=== PATIENT | male | born 1980 | race Caucasian/White ===

== ENCOUNTER 2018-01-31 12:21 | Emergency (ER) | payer MEDICAID ==
[2018-01-31 12:30] VITALS: BP 124/72
--- NOTE | 2018-01-31 12:56 | EDPHY ---
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 He has been wearing a splint that he bought [id number] but continues to be painful swollen and he is unable to extend. He denies any numbness. He denies any other injury. REVIEW OF SYSTEMS: As in HPI, and all other systems reviewed and are negative Smoking Status: Never smoked Physical Exam: General Appearance: Alert and no distress. Head: Normocephalic, atraumatic Eyes: Pupils equal and round no injection. Extraocular movements are intact. Musculoskeletal: Neck is supple and nontender. Extremities: Left ring finger with mallet finger deformity, unable to extend at the IP joint, PIP joint intact, positive minimal erythema and minimal tenderness, distal sensation intact, distal cap refill less than 2 sec. Skin: No rashes or lesions except as described above. Constitutional: Initial Vital Signs Temperature (C) 36.8 C 01/31/18 12:26 Heart Rate 82 01/31/18 12:26 Respiratory Rate 16 01/31/18 12:26 Blood Pressure 124/72 H 01/31/18 12:26 O2 Sat (%) 94 01/31/18 12:26 O2 Delivery Mode Room Air Allergies/Adverse Reactions: Penicillins Allergy (Unknown, Verified 01/31/18 12:30) Home Medications: Medication Instructions Recorded ALBUTEROL SULFATE 01/31/18 Cyclobenzaprine 01/31/18 Dulera 100 Mcg/5 Mcg Inhaler 01/31/18 LYRICA 01/31/18 Oral Asthma Med 01/31/18 MDM/Departure - [facility] ED Course/Re-evaluation: 37-year-old man presents with mallet finger. X-ray was done which showed no evidence of fracture. Patient was placed in a splint and extension and referred to Ortho for follow-up. I instructed him in wearing a splint for the next 6 weeks, he may continue ibuprofen and ice as for pain and swelling. - Depart Disposition: Home, Routine, Self-Care Clinical Impression: Mallet finger of left finger(s) Condition: Good Instructions: Jammed Finger (ED) Additional Instructions: You were seen by Dr. Marely Hudson today. Wear the splint and keep the finger in extension for the next 5 weeks to prevent permanent flexion deformity of the finger. Please follow up with Dr. Tadeo, hand surgeon for further evaluation and treatment. Return for any worsening or new concerns. Referrals: [facility] [Other] - As per Instructions Stef Tadeo MD [Medical Doctor] - As per Instructions
== END 2018-01-31 13:02 | disposition home or self-care (01) ==
LOC: CED 12:21
DX: M20.012 Mallet finger of left finger(s) (principal); W23.0XXA Caught, crushed, jammed, or pinched between moving objects, initial encounter; Y93.61 Activity, american tackle football
CPT/HCPCS: 73140-PO; L3925

== ENCOUNTER 2018-08-09 19:09 | Emergency (ER) | payer MEDICAID ==
--- NOTE | 2018-08-09 19:42 | EDPHY ---
H & P Smoking Status: Current every day smoker Time Seen by Provider: 08/09/18 19:09 HPI/ROS: CHIEF COMPLAINT: "I fell" HISTORY OF PRESENT ILLNESS: 38-year-old male arrives via ambulance. States that he was visiting his grandmother, stepped out side to have super drinks of alcohol on a cigarette, fell. Not a syncopal episode. Mechanical incident. Grandmother was unable to stand him up, subsequently 911 was called. He has no complaints of pain or discomfort. He denies head injury. Denies syncope. Denies chest pain or prodrome. Denies C-spine pain. Denies peripheral paresthesia, weakness, numbness. Denies back pain. Denies peripheral musculoskeletal pain. Denies abdominal pain. Denies genital pain or injury. PRIMARY CARE PROVIDER: REVIEW OF SYSTEMS: 10 systems reviewed and negative with the exception of the elements mentioned in the history of present illness PAST MEDICAL & SURGICAL HISTORY: No pertinent medical or surgical history SOCIAL HISTORY: Admits to alcohol use PHYSICAL EXAM (Prior to examination, patient consented to physical exam, hands were washed and my usual and customary physical exam procedures followed) 1) GENERAL: Well-developed, well-nourished, alert and oriented. Appears to be in no acute distress. Smiling. Occurred ES. Answering questions appropriately. 2) HEAD: Normocephalic, atraumatic, no abrasion no hematoma or laceration. 3) HEENT: Pupils equal, round, reactive to light bilaterally. Sclera anicteric. No raccoon eyes. No Robertson sign. Nasopharynx, oropharynx, clear, no lesions. Moist Mucous membranes. No oral pharyngeal trauma. No tongue laceration. Ears bilaterally with normal tympanic membranes. No hemotympanum. No fluid blood in external auditory canal. 4) NECK: Full range of motion, no meningeal signs. No midline C-spine pain. Full pain-free range of motion. 5) LUNGS: Clear auscultation bilaterally, no wheezes, no rhonchi, no retractions. 6) HEART: Regular rate and rhythm, no murmur, no heave, no gallop. 7) ABDOMEN: No guarding, no rebound, no focal tenderness, negative McBurney's, negative Le's, negative Rovsing's, negative peritoneal sign, 8) MUSCULOSKELETAL: Moving all extremities, no focal areas of tenderness, no obvious trauma. No peripheral edema or discoloration. 9) BACK: No CVA tenderness, no midline vertebral tenderness, no fluctuance, no step-off, no obvious trauma, no visual or palpable abnormality. 10) SKIN: No rash, no petechiae. 11) Psychiatric: Patient is oriented X 3, there is no agitation. 12) NEURO: Awake, alert, and oriented to person, place and time. Answers questions appropriately. There were no obvious focal neurologic abnormalities. No cerebellar dysfunction. Cranial nerves 2 through to 12 intact. Normal steady gait. Upper and lower extremities bilaterally with strength 5 / 5, reflexes 2+. DIFFERENTIAL DIAGNOSIS: In no particular order including but not limited to alcohol abuse, syncope, mechanical fall on snow (Aron,Odell Mercedes) Constitutional: Initial Vital Signs Temperature (C) 36.5 C 08/09/18 19:17 Heart Rate 91 08/09/18 19:17 Respiratory Rate 14 08/09/18 19:17 Blood Pressure 118/79 08/09/18 19:17 O2 Sat (%) 87 L 08/09/18 19:17 O2 Delivery Mode Room Air Allergies/Adverse Reactions: Penicillins Allergy (Unknown, Verified 01/31/18 12:30) Home Medications: Medication Instructions Recorded ALBUTEROL SULFATE 01/31/18 Cyclobenzaprine 01/31/18 Dulera 100 Mcg/5 Mcg Inhaler 01/31/18 LYRICA 01/31/18 Oral Asthma Med 01/31/18 MDM/Departure - [facility] ED Course/Re-evaluation: PHYSICIAN DOCUMENTATION: The patient was evaluated and managed by the Physician Manager [employer]. My co- signature indicates that I have reviewed this chart and I agree with the findings and plan of care as documented. I am the secondary supervising physician. (Juwan Parker) 7:30 p.m.: I have evaluated the patient, this time he is ambulating without assistance with stable steady gait, clear speech pattern, awake alert oriented person place time events. I have observed him ambulating to the bathroom and back. He has NIH score of 0. No focal neurologic deficits. He would like to be discharged back to his grandmothers apartment. He has no evidence of trauma. I do not identify emergent medical or surgical condition. Patient feels comfortable being discharged. (Odell Sharp) - Depart Disposition: Home, Routine, Self-Care Clinical Impression: Alcohol use Condition: Good Instructions: Abuse of Alcohol (ED) Additional Instructions: Please exercise moderation with alcohol use Referrals: [facility],. [Clinic] - 1-2 days without fail NIH Stroke Scale Date of Exam: 08/09/18 Time of Exam: 19:15 Level of Consciousness: Alert LOC Questions: Answers Both LOC Commands: Performs Both Correctly Best Gaze: Normal Visual: No Visual Loss Facial Palsy: Normal Motor Arm-Left: No Drift Motor Arm-Right: No Drift Motor Leg-Left: No Drift Motor Leg-Right: No Drift Limb Ataxis: Absent Sensory: Normal Best Language: No Aphasia Dysarthria: Normal Extinction and Inattention (Neglect): No Abnormality NIH Scale Score: 0
[2018-08-09 21:05] VITALS: BP 119/96
== END 2018-08-09 21:06 | disposition home or self-care (01) ==
LOC: EDUNIT#
DX: F10.920 Alcohol use, unspecified with intoxication, uncomplicated (principal)

== ENCOUNTER 2018-08-11 01:31 | Inpatient (IN) | payer MEDICAID ==
[2018-08-11] MEDS ORDERED: NS 1,000 ML IV ONE ×2 (01:35→03:20)
[2018-08-11] MEDS ORDERED: LORazepam 1 MG TAB PO PRN (01:35)
--- NOTE | 2018-08-11 01:38 | EDPHY ---
H & P Stated Complaint: Seizure Time Seen by Provider: 08/11/18 01:34 HPI/ROS: HPI The patient presents brought in by ambulance for possible seizure while at his grandmother's house. He was seated on the couch when his grandmother witnessed tonic clonic activity in his arms and legs lasting for about 3 min. He fell off the couch and landed on the floor, hitting his head. He afterwards was somewhat sleepy. Blood glucose was 163. Patient has become more awake and alert during his transport here. He reports that he does not have a history of seizures. He is a heavy alcohol drinker. He was seen 2 days ago in the ER for alcohol intoxication and a fall associated with this. REVIEW OF SYSTEMS 10 systems were reviewed and negative with the exception of the elements mentioned in the history of present illness. PMHx: History of asthma, alopecia areata, eczema Soc Hx: Alcohol abuse, living with his grandmother currently PHYSICAL General Appearance: Alert, no distress Eyes: Pupils equal and round no pallor or injection ENT, Mouth: Mucous membranes moist Respiratory: There are no retractions, lungs are clear to auscultation Cardiovascular: Regular rate and rhythm Gastrointestinal: Abdomen is soft and non-tender, no masses, bowel sounds normal Neurological: A&O, moves all extremities, tremulous with hand tremor Skin: Warm and dry, no rashes Musculoskeletal: Neck is supple non tender Extremities: symmetrical, full range of motion Psychiatric: Patient is oriented X 3, there is no agitation Source: Patient, EMS, Old records - Personal History Tetanus Vaccine Date: 2008 - Medical/Surgical History Hx Asthma: Yes Hx Chronic Respiratory Disease: No Hx Diabetes: No Hx Cardiac Disease: No Hx Renal Disease: No Hx Cirrhosis: No Hx Alcoholism: No Hx HIV/AIDS: No Hx Splenectomy or Spleen Trauma: No Other PMH: ASTHMA. DEVIATED SEPTUM REPAIR. Alopecia,. Fibromyalgia, - Social History Smoking Status: Current every day smoker Constitutional: Initial Vital Signs Temperature (C) 37.3 C 08/11/18 01:20 Heart Rate 87 08/11/18 01:20 Respiratory Rate 18 08/11/18 01:20 Blood Pressure 148/82 H 08/11/18 01:20 O2 Sat (%) 93 08/11/18 01:20 O2 Delivery Mode Nasal Cannula O2 (L/minute) 2 Allergies/Adverse Reactions: Penicillins Allergy (Unknown, Verified 01/31/18 12:30) Home Medications: Medication Instructions Recorded Albuterol [Proventil Inhaler HFA 1 - 2 puffs IH Q4H PRN 01/31/18 (*)] Mometasone/Formoterol [Dulera 200 2 puffs IH BID 01/31/18 Mcg/5 Mcg Inhaler] Medical Decision Making Differential Diagnosis: 38-year-old male, seen 2 days ago for alcohol intoxication presents with a witnessed tonic clonic event with postictal period. I met the paramedics at the bedside to obtain their report. Here, he appears to be in alcohol withdrawal. I have started him on the CIWA protocol. The patient had labs checked and they were unremarkable. Blood alcohol level was undetectable. The patient received several doses of Ativan though was still tremulous, uncomfortable appearing though sedate. He became tachycardic every time he set up. I discussed the case with the hospitalist Dr. Amezcua and we will admit the patient for further care for alcohol withdrawal. Differential diagnosis includes alcohol withdrawal seizure, electrolyte disturbance, polysubstance abuse. - Data Points Laboratory Results: Laboratory Results 08/11/18 01:35 08/11/18 01:33 Medications Given: Albuterol (Proventil Neb) 3 ml IH Q2HRS PRN PRN Reason: Short of Breath/Dyspnea Stop: 02/07/19 07:15 Last Admin: 08/11/18 22:06 Dose: 3 ml Chlordiazepoxide HCl (Librium) 25 mg PO TID MARGARITA Stop: 02/07/19 08:59 Last Admin: 08/11/18 20:45 Dose: 25 mg Sodium Chloride (Ns) 1,000 mls @ 100 mls/hr IV CONT MARGARITA Stop: 02/07/19 06:14 Last Admin: 08/11/18 14:05 Dose: 1,000 mls Famotidine/Sodium Chloride (Pepcid 20 Mg (Premix)) 50 mls @ 200 mls/hr IV Q12HRS MARGARITA Stop: 02/07/19 08:59 Last Admin: 08/11/18 20:45 Dose: 50 mls Lorazepam (Ativan Injection) 0 mg IVP Q1H PRN; Protocol PRN Reason: Alcohol Withdrawal w/IV access Stop: 02/07/19 06:11 Last Admin: 08/11/18 22:50 Dose: 2 mg Miscellaneous Medication (Mometasone/Formoterol [Dulera 200 Mcg/5 Mcg Inhaler]) 2 puffs IH BID MARGARITA Stop: 02/07/19 13:44 Last Admin: 08/11/18 21:02 Dose: Not Given Discontinued Medications Chlordiazepoxide HCl (Librium) 50 mg PO EDNOW ONE Stop: 08/11/18 04:44 Last Admin: 08/11/18 05:30 Dose: 50 mg Sodium Chloride (Ns) 1,000 mls @ 0 mls/hr IV EDNOW ONE; Wide Open PRN Reason: Protocol Stop: 08/11/18 01:36 Last Admin: 08/11/18 01:47 Dose: 1,000 mls Sodium Chloride (Ns) 1,000 mls @ 0 mls/hr IV EDNOW ONE; TKO PRN Reason: Protocol Stop: 08/11/18 03:21 Last Admin: 08/11/18 03:21 Dose: 1,000 mls Thiamine HCl 500 mg/ Sodium (Chloride) 105 mls @ 210 mls/hr IV EDNOW ONE Stop: 08/11/18 10:14 Last Admin: 08/11/18 10:04 Dose: 105 mls Lorazepam (Ativan Injection) 0 mg IVP Q1H PRN; Protocol PRN Reason: Alcohol Withdrawal w/IV access Stop: 08/11/18 13:35 Last Admin: 08/11/18 11:21 Dose: 2 mg Lorazepam (Ativan Injection) 1 mg IVP EDNOW ONE Stop: 08/11/18 03:11 Last Admin: 08/11/18 03:22 Dose: 1 mg Lorazepam (Ativan Injection) 2 mg IVP EDNOW ONE Stop: 08/11/18 06:34 Last Admin: 08/11/18 06:33 Dose: 2 mg Departure - Departure Disposition: [facility] Clinical Impression: Alcohol withdrawal seizure with delirium Condition: Fair
[2018-08-11] MEDS: LORazepam 2 MG/ML INJ IVP PRN ×10 (01:47→22:50)
[2018-08-11 02:01] LABS: PLATELET COUNT 75 10^3/uL (150-400)
[2018-08-11] MEDS ORDERED: LORazepam 2 MG/ML INJ IVP ONE ×2 (03:10→06:33)
[2018-08-11] MEDS ORDERED: chlordiazePOXIDE 25 MG CAP PO ONE (04:43)
[2018-08-11] MEDS ORDERED: ONDANSETRON 4 MG/2 ML VIAL IVP PRN (06:07)
[2018-08-11] MEDS ORDERED: ONDANSETRON DISINTEGRATING 4 MG TAB PO PRN (06:07)
--- NOTE | 2018-08-11 06:07 | CPEKG ---
Test Reason : OPEN Blood Pressure : / mmHG Vent. Rate : 092 BPM Atrial Rate : 088 BPM P-R Int : 132 ms QRS Dur : 102 ms QT Int : 468 ms P-R-T Axes : 166 -44 185 degrees QTc Int : 580 ms Sinus or ectopic atrial rhythm Left axis deviation Abnormal T Prolonged QT interval Confirmed by Floresita Soler ([id number]) on 08/11/2018 6:06:55 AM Referred By: Floresita Soler Confirmed By:Floresita Soler
[2018-08-11] MEDS ORDERED: FLUMAZENIL 0.5 MG/5 ML MDV IVP PRN (06:12)
--- NOTE | 2018-08-11 07:55 | GHP ---
[f rep st] HISTORY AND PHYSICAL DATE OF ADMISSION: 08/11/2018 Patient without a PCP. The patient unable to provide significant amount of history as he is a little confused due to alcohol withdrawal. EMR was reviewed and case discussed with ED provider. CHIEF COMPLAINT: Alcohol withdrawal seizure. HISTORY OF PRESENT ILLNESS: This is a 38-year-old gentleman with a past medical history significant for alcohol dependence, asthma, alopecia, fibromyalgia, who presents to the emergency department [place] early this morning via EMS after patient had a witnessed tonic-clonic seizure. The patient is cur rently, recently living with his grandmother, who observed the patient having a seizure at home. Heaven arently the patient had been to the emergency department 2 days ago, intoxicated, following a mechani sang fall. He was discharged home and apparently patient had decided to quit drinking "cold turkey." Witness seizure lasted approximately 3 minutes and patient did fall off the sofa. REVIEW OF SYSTEMS: Unable to obtain due to patient's confusion, sedation. ALLERGIES: Penicillin. HOME MEDICATIONS: Lyrica, Dulera inhaler, cyclobenzaprine, albuterol, another asthma medication not yet updated in [facility]. PAST MEDICAL HISTORY: Significant for alcohol dependence, asthma, alopecia areata, fibromyalgia. PAST SURGICAL HISTORY: Deviated septum repair. FAMILY HISTORY: Seasonal allergies. CODE STATUS: Full. SOCIAL HISTORY: Patient does not smoke. He does drink as noted above, and uses marijuana occasional ly. PHYSICAL EXAMINATION: VITAL SIGNS: Upon arrival to the ED, blood pressure 148/82, heart rate 87, re spiratory rate 18, O2 saturation 93 on room air with temperature 37.3. Current vitals available: Blo od pressure of 134/82, heart rate is 105, respiratory rate 18, O2 saturation 92% on 2 L by nasal yolanda emma, and temperature 36.6. GENERAL: No acute distress. Thin adult male, is lying on the gurney. Van morris does appear older than his stated age. He does not have any hair on his face or scalp. He will wa ke to name but then falls back asleep. HEAD: Normocephalic, atraumatic. EYES: Extraocular muscles are grossly intact. Pupils equal, round. Decreased reactivity to light bilaterally, but symmetric. No scleral icterus. Conjunctival injection. ENT: Mucous membranes appear slightly dry. No oroph aryngeal erythema or exudates. No nasal discharge. NECK: Supple, trachea midline. CV: Regular rat e and rhythm. Slightly tachycardic. No rubs or gallops appreciated. RESPIRATORY: Lungs clear to a uscultation bilaterally. No wheezes, rales, or rhonchi. Some diminished inspiratory effort. ABDOME N: Positive bowel sounds. Soft, nontender to palpation. No rebound, guarding, or masses appreciated . : No suprapubic tenderness to palpation. No Nelosn catheter in place. MUSCULOSKELETAL: Genera lized weakness. The patient is somnolent and sedated, but is able to move all extremities. NEURO: Grossly nonfocal. No facial drooping. Somnolence as noted above. LABORATORY STUDIES: WBC is 11.97, H and H are 14.9 and 44.5, MCV of 99.1, platelet count 25,000, dec reased platelets, oval macrocytes noted, no blast cells. Sodium is 134, potassium 4.3, chloride 93, CO2 21, anion gap of 20, BUN 9, creatinine 0.5. GFR greate r than 50, glucose 98, calcium is 9.7, total bilirubin is 3.7, conjugated 0.6, unconjugated 3.1, ALT is 138, AST is 194, Alkaline phosphatase 118. Total protein 7.6, albumin 4.7. Alcohol level negative. EKG: Reviewed by me showing left axis deviation, abnormal T-waves in multiple leads. Sinus versus e ctopic atrial rhythm in the 90s. QTc is 580. Some artifact is present. No acute ST elevations. T- wave inversions in multiple leads. ASSESSMENT AND PLAN: Osonqx[age]pymv-kzbh-old gentleman with history of alcohol dependence, asthma, who presents to the emergency department today with seizure. 1. Alcohol withdrawal with seizure activity. The patient has been started on CIWA protocol and has received Ativan. He has not had any additional seizure activity since arrival in the emergency depar tment. Hold off on antiepileptic medications. Patient with escalating needs of Ativan and likely wi ll necessitate ICU admission and use of sedation drip. He does have a previous history of alcohol wi thdrawal, but denies any history of seizures in the past. 2. Leukocytosis, likely reactive. 3. Thrombocytopenia with transaminitis and hyperbilirubinemia and coagulopathy likely related to seq uelae of chronic alcohol use, liver involvement. 4. Hyponatremia, likely some component of hypovolemia. The patient does not appear overloaded. 5. Hypochloridemia in setting of hyponatremia. Continue with IV fluids. 6. Anion gap likely secondary, related to withdrawal and seizure activity. We will continue to davidson tor. 7. Transaminitis and hyperbilirubinemia, as noted above. 8. Asthma. Patient without any evidence of exacerbation. Albuterol will be made available p.r.n. 9. Fluid, electrolyte, nutrition. Intravenous fluid supplementation as noted above. Electrolytes, will monitor, replace if needed. Advance diet once patient's mentation improves. 10. Prophylaxis. SCDs. Holding anticoagulation as patient with a thrombocytopenia 75,000. 11. Code status will be full at this time. 12. Disposition. Patient admitted to inpatient status. Will require ICU monitoring in setting of e scalating dosing of Ativan and worsening symptoms. Anticipate greater than 2 midnight stay. /[id number]/MODL
--- NOTE | 2018-08-11 09:04 | PDMN ---
Medical Necessity Medical necessity: Pt meets IP criteria as of 08/11/2018 per and JASMINA M-595 ( Substance-Related Disorders); est los > 2 mn for ongoing tx and management of acute alcohol withdrawal with seizure activity, CIWA 13, reactive leukocytosis, thrombocytonpenia with transaminitis and hyperbilirubinemia and coagulopathy, hyponatremia, hypochloridemia, and anion gap.
[2018-08-11] MEDS: FAMOTIDINE 20 MG/NACL 50 ML IV SCH ×2 (09:20→20:45)
[2018-08-11] MEDS: chlordiazePOXIDE 25 MG CAP PO SCH ×3 (09:20→20:45)
[2018-08-11] MEDS ORDERED: THIAMINE HCL 500 MG in NS 100 ML IV ONE (09:45)
[2018-08-11] MEDS: (Mometasone/Formoterol [Dulera 200 Mcg/5 Mcg Inhaler] 2 PUFFS) IH SCH ×2 (13:52→21:02)
[2018-08-11] MEDS: NS 1,000 ML IV SCH (14:05)
--- NOTE | 2018-08-11 15:02 | GCON ---
[f rep st] CONSULTATION TRIM DIE MAKER CONSULTATION DATE OF CONSULTATION: 08/11/2018 REASON FOR ADMISSION: Acute alcohol withdrawals, alcoholic seizure. HISTORY OF PRESENT ILLNESS: The patient is a 38-year-old white male with a past medical history cons isting of chronic pain, likely asthma and alcoholism. He also has fibromyalgia. He presented to the emergency room earlier today after a witnessed seizure. He was seen in the emergency room [facility] 2 days prior after a fall. He was discharged home, and at that point he decided to quit drinkin g alcohol. He was subsequently admitted to the intensive care unit. Currently, he is sedated. All history is gleaned from the medical record. REVIEW OF SYSTEMS: Ten-point review of systems attempted, unable to be performed secondary to sedati on. PAST MEDICAL HISTORY: Significant for alcoholism, asthma, alopecia. PAST SURGICAL HISTORY: He has had a deviated septum repair. ALLERGIES: Penicillin. MEDICATIONS: At home include albuterol, cyclobenzaprine, Dulera, and Lyrica. SOCIAL HISTORY: No history of tobacco use, but excessive amounts of alcohol use. He occasionally us es marijuana. He resides with his grandmother. FAMILY HISTORY: Noncontributory. PHYSICAL EXAM: VITAL SIGNS: Blood pressure 124/97. Pulse 82. Respirations 20. Temp 36.6. Oxygen saturation 97% on 2 L. GENERAL: He is a well-developed 38-year-old white male who is somnolent and somewhat sedated. HEENT: Eyes PERRL, EOMI. Throat exam is deferred. NECK: Supple. There is no cervical adenopathy. No stridor was appreciated. HEART: Regular rate and rhythm without murmurs or gallops. LUNGS: Clear to auscultation. No wheeze or rhonchi. ABDOMEN: Soft, nontender. Bowel s ounds are present in all 4 quadrants. EXTREMITIES: No clubbing, cyanosis, or edema. LABORATORIES: White count 11.9, hemoglobin of 14, hematocrit 44, platelet count is 75. Sodium 134, potassium 4.3, chloride 93, CO2 21, BUN is 9, creatinine 0.5, glucose is 98. AST is elevated at 194, ALT at 138. Urine toxicology screen is non negative for benzodiazepines and marijuana. Alcohol lev el was less than 10. Chest x-ray reviewed by myself is clear. Soft tissue neck x-ray was normal. IMPRESSION: 1. Alcoholism. 2. Alcohol withdrawal seizures. 3. Asthma. 4. Alopecia. 5. Fibromyalgia. 6. Elevated transaminases secondary to alcohol. RECOMMENDATIONS: 1. Continue CIWA protocol. 2. DVT and PE prophylaxis. 3. Stress ulcer prophylaxis. 4. PT and OT. 5. Early ambulation. /[id number]/MODL
--- NOTE | 2018-08-11 16:19 | ASMTCMCOM ---
CM Note CM Note Notes: Pt presented to the ED via EMS after having a seizure at his grandmother's house ( where he has been living recently). Pt admitted for ETOH withdrawal seizure and further monitoring. Pt was recently seen in the ED on 08/09 for ETOH intoxication and difficulty walking but declined the option to go to detox and instead discharged home with his brother. Pt states he has been drinking more heavily in the past 4 weeks. Pt states he drinks approximately 1/2 pint of whiskey everyday. Pt states he has never been to a detox or other treatment program. Pt states he is followed by [facility] in [place] but can't remember his PCP's name. This CM called [facility] in [place] (backline # [phone] - - please do not give this # to pts, it is for CM use only) and pt is followed by Dr Jose Juan Saba; CM updated pt's PCP in [facility]. The last time pt was seen at [facility] was 06/16/2017. Pt had called in and requested refills of his asthma inhalers on 07/19/18 and had an appt on 07/25/18 but did not show up for the appt. Per Bobbi, pt was seen at [facility] in the ED on 07/18/18 for ETOH abuse but was discharged home w/his brother. This CM attempted to contact pt's sister, Ladan ([phone]) & pt's brother, Raul ([phone]) but both calls went to anonymous voicemails so voicemails were not left. Pt states he will try to contact them later. Pt does not know his grandmother's phone # my memory. PT/OT ordered. Exact DC needs TBD but anticipate pt to stabilize and DC home Ind w/family to followup with his PCP and other outpatient substance abuse resources. [facility] CM to follow. Date Signed: 08/11/2018 04:18 PM Electronically Signed By:Coleen Burris RN
--- NOTE | 2018-08-11 18:05 | HOSPPROG ---
Hospitalist Progress Note Assessment/Plan: DIAGNOSES: * Acute alcohol withdrawal with alcohol withdrawal seizure and delirium, tachycardia * Alcoholism * Thrombocytopenia due to alcoholism * Hyponatremia with hypovolemia * Mild alcohol induced hepatitis * Acute metabolic acidosis likely from seizure, could also have some ketosis related to alcohol and not eating * History of asthma currently stable * History fibromyalgia * History of alopecia Received 15 mg of Ativan +2 doses of Librium over period of just over 10 hr in the ER and comes up to the ICU that time still tremulous, confused, mildly anxious but awake. Expect that his delirium will actually increase over the next day or so. Currently no signs of arrhythmia, infection, and he is cooperating with the nurses at this time. I reviewed again and he denies use of any other street drugs or other chemicals PLANS: Continue alcohol withdrawal protocol Seizure prophylaxis Suspect he will end up on a Precedex drip Continue SDU admission as inpatient Fall risk precautions Thiamin replacement Multivitamins Beta-aroldo if needed for hypertension tachycardia > 35 min is bedside time on 3 visits and care coordination with his RN at bedside in addition to the time spent earlier today by Dr. 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: Sinus Exam: Awake despite large doses of benzodiazepine over the last 10 hr, tremor present , somewhat anxious, delusional and disoriented but calm and cooperative at present skin warm dry color ok resps not labored lungs clear BSs heart regular abd soft nondistended nontender, bowel sounds present limbs warm, no edema iv site ok Objective: Vital Signs Temp Pulse Resp BP Pulse Ox 37.6 C 85 20 125/84 H 97 08/11/18 16:00 08/11/18 16:00 08/11/18 16:00 08/11/18 16:00 08/11/18 16:00 08/10/18 08/11/18 08/12/18 06:59 06:59 06:59 Intake Total 384 Output Total 100 Balance 284 ICD10 Worksheet Patient Problems: Problems Problem Status Onset Alcoholism Acute - ICD10 Problem Qualifiers (1) Alcoholism
[2018-08-11] MEDS: ALBUTEROL 3 ML DEYVIAL IH PRN (22:06)
[2018-08-12] MEDS: LORazepam 2 MG/ML INJ IVP PRN ×5 (04:23→22:01)
[2018-08-12] MEDS: FAMOTIDINE 20 MG/NACL 50 ML IV SCH (08:10)
[2018-08-12] MEDS: chlordiazePOXIDE 25 MG CAP PO SCH ×3 (08:10→20:39)
[2018-08-12] MEDS: THIAMINE HCL 500 MG in NS 100 ML IV SCH (08:45)
[2018-08-12] MEDS: (Mometasone/Formoterol [Dulera 200 Mcg/5 Mcg Inhaler] 2 PUFFS) IH SCH (09:00)
--- NOTE | 2018-08-12 09:45 | PDINTPN ---
Assistant Administrator Progress Note Assessment/Plan: Assessment/plan: * Alcoholism * Acute alcohol withdrawals -continue CIWA * Chronic pain-well controlled * Asthma-stable * Alopecia * Nutrition-adequate * VTE prophylaxis Subjective: Sitting up in bed eating breakfast. Denies any pain. Awake and alert. Objective: Vital Signs Temp Pulse Resp BP Pulse Ox 36.7 C 85 20 124/84 H 97 08/12/18 07:49 08/12/18 07:49 08/12/18 07:49 08/12/18 07:49 08/12/18 07:49 08/11/18 08/12/18 08/13/18 05:59 05:59 05:59 Intake Total 1983 Output Total 700 Balance 1283 - Time Spent With Patient Time Spent With Patient: 35 min of time spent with patient, over 1/2 involved with coordination of care or counseling. Case discussed with nursing Physical Exam - Physical Exam General Appearance: alert, no apparent distress EENT: PERRL/EOMI Neck: non-tender, supple Respiratory: chest non-tender, lungs clear, normal breath sounds, prolonged expiration (Mild) Cardiac/Chest: normal peripheral pulses, regular rate, rhythm Peripheral Pulses: 2+: carotid (R), carotid (L), femoral (R), femoral (L), dorsalis-pedis (R), dorsalis-pedis (L) Abdomen: normal bowel sounds, non-tender, soft Male Genitalia: deferred Rectal: deferred Skin: normal color, warm/dry Extremities: normal range of motion, non-tender, normal inspection, normal capillary refill Neuro/Psych: alert ICD10 Worksheet Patient Problems: Problems Problem Status Onset Alcohol withdrawal seizure with delirium Acute Alcoholism Acute
--- NOTE | 2018-08-12 12:17 | ASMTCAGE ---
CAGE Do you feel you ought to Answers: Yes cut down on your drinking or drug use? Do people annoy you by Answers: No criticizing your drinking or drug use? Do you feel guilty about Answers: No your drinking or drug use? 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 Additional Comments reports consuming 1 - 2 beers/day. Date Signed: 08/12/2018 12:16 PM Electronically Signed By:Riya Salmeron RN
--- NOTE | 2018-08-12 12:20 | ASMTCMCOM ---
CM Note CM Note Notes: 08/12/2018 Case Management Note Discussed pt during rounds this morning. Met w/pt to complete CAGE. Pt stated he consumes 1 -2 beers per day. Denies any other alcohol consumption. Pt stated he is uncertain if he wants to stop drinking at this time. Provided Medicaid specific resources including intensive outpatient, group, and one to one counseling. Case Management d/c poc: home independent with follow up as directed. Case Management available if needs change. Date Signed: 08/12/2018 12:19 PM Electronically Signed By:Riya Salmeron RN
--- NOTE | 2018-08-12 13:28 | HOSPPROG ---
Hospitalist Progress Note Assessment/Plan: 38-year-old alcoholic who was seen in the emergency department 2 days prior to admission with a mechanical fall. He apparently quit drinking cold turkey after the ER visit and had a witnessed tonic-clonic seizure at home by his grandmother 2 days later. He is admitted with alcohol withdrawal. # alcohol withdrawal, acute complicated by seizure. Currently on the CIWA protocol and doing relatively well although he is quite confused * Patient does admit he wants to stop drinking * Quite confused and not medically competent to make any decisions at this time * Continue CIWA # thrombocytopenia due to alcoholism # mild alcohol-induced hepatitis, continue to monitor # asthma, stable # alopecia # fibromyalgia Subjective: Patient new to me and chart reviewed, discussed in multidisciplinary rounds. Patient asymptomatic and not in pain however quite confused. Objective: Vital Signs Temp Pulse Resp BP Pulse Ox 36.7 C 100 27 H 124/86 H 97 08/12/18 07:49 08/12/18 12:00 08/12/18 12:00 08/12/18 12:00 08/12/18 12:00 08/11/18 08/12/18 08/13/18 05:59 05:59 05:59 Intake Total 1983 Output Total 700 Balance 1283 - Physical Exam Constitutional: not in pain, chronically ill appearing Eyes: PERRL Ears, Nose, Mouth, Throat: moist mucous membranes Cardiovascular: regular rate and rhythym, tachycardia Respiratory: no respiratory distress Gastrointestinal: soft, non-tender abdomen Genitourinary: no bladder fullness, other (Incontinent of urine) Skin: warm, other (Multiple tattoos) Musculoskeletal: abnormal gait, generalized weakness Neurologic: No AAOx3 Psychiatric: encephalopathic ICD10 Worksheet Patient Problems: Problems Problem Status Onset Alcoholism Acute Alcohol withdrawal seizure with delirium Acute
[2018-08-12] MEDS: NICOTINE 21 MG/24 HR PATCH TD PRN (15:50)
[2018-08-12] MEDS: FAMOTIDINE 20 MG TAB PO SCH (20:39)
[2018-08-13] MEDS: LORazepam 2 MG/ML INJ IVP PRN ×2 (00:39→03:19)
[2018-08-13] MEDS: NS 1,000 ML IV SCH ×3 (03:58→17:21)
[2018-08-13] MEDS ORDERED: DEXMEDETOMIDINE HCL 400 MCG in NS 100 ML IV SCH (04:00)
[2018-08-13] MEDS: LORazepam 2 MG/ML INJ IVP SCH ×4 (06:51→23:20)
[2018-08-13] MEDS: THIAMINE HCL 500 MG in NS 100 ML IV SCH (08:49)
[2018-08-13] MEDS: FAMOTIDINE 20 MG TAB PO SCH ×2 (08:49→21:02)
[2018-08-13] MEDS: chlordiazePOXIDE 25 MG CAP PO SCH ×3 (08:49→21:02)
--- NOTE | 2018-08-13 09:40 | PDINTPN ---
Outsole Splicer Progress Note Assessment/Plan: Assessment/plan: * Alcoholism * Acute alcohol withdrawals. Was on Precedex which dropped his blood pressure. -continue CIWA * Chronic pain-well controlled * Elevated transaminases-secondary to alcohol * Asthma-stable * Alopecia * Nutrition-adequate * VTE prophylaxis * PT/OT Subjective: Resting comfortably. No current complaints. Objective: Vital Signs Temp Pulse Resp BP Pulse Ox 35.7 C L 93 20 108/79 99 08/13/18 07:50 08/13/18 07:50 08/13/18 07:50 08/13/18 07:50 08/13/18 07:50 Laboratory Results 08/13/18 05:15 08/13/18 05:15 08/12/18 08/13/18 08/14/18 05:59 05:59 05:59 Intake Total 1982 1752 Output Total 700 475 Balance 1283 1277 Laboratory Results 08/13/18 05:15 08/13/18 05:15 08/13/18 05:15 Calcium 9.3 mg/dL mg/dL (8.5 - 10.4) Phosphorus 3.9 mg/dL mg/dL (2.5 - 4.5) Magnesium 1.8 mg/dL mg/dL (1.6 - 2.3) Total Bilirubin 2.3 mg/dL H mg/dL (0.1 - 1.4) Conjugated Bilirubin 0.7 mg/dL H mg/dL (0.0 - 0.5) Unconjugated Bilirubin 1.6 mg/dL H mg/dL (0.0 - 1.1) AST 107 IU/L H IU/L (17 - 59) ALT 94 IU/L H IU/L (21 - 72) Alkaline Phosphatase 111 IU/L IU/L (38 - 126) Total Protein 6.8 g/dL g/dL (6.3 - 8.2) Albumin 4.0 g/dL g/dL (3.5 - 5.0) - Time Spent With Patient Time Spent With Patient: 35 min of time spent with patient, over 1/2 involved with coordination of care counseling. Case discussed with nursing Physical Exam - Physical Exam General Appearance: alert, no apparent distress EENT: PERRL/EOMI Neck: non-tender, supple Respiratory: chest non-tender, lungs clear, normal breath sounds Cardiac/Chest: normal peripheral pulses, regular rate, rhythm Peripheral Pulses: 2+: carotid (R), carotid (L), femoral (R), femoral (L), dorsalis-pedis (R), dorsalis-pedis (L) Abdomen: normal bowel sounds, non-tender, soft Male Genitalia: deferred Rectal: deferred Skin: normal color, warm/dry Extremities: normal range of motion, non-tender, normal inspection, normal capillary refill Neuro/Psych: alert ICD10 Worksheet Patient Problems: Problems Problem Status Onset Alcohol withdrawal seizure with delirium Acute Alcoholism Acute
--- NOTE | 2018-08-13 10:38 | HOSPPROG ---
Hospitalist Progress Note Assessment/Plan: 38-year-old alcoholic who was seen in the emergency department 2 days prior to admission with a mechanical fall. He apparently quit drinking cold turkey after the ER visit and had a witnessed tonic-clonic seizure at home by his grandmother 2 days later. He is admitted with alcohol withdrawal. # alcohol withdrawal, acute complicated by seizure. Currently on the CIWA protocol and doing relatively well although continues with delirium. * Patient does admit he wants to stop drinking * Quite confused and not medically competent to make any decisions at this time * Continue CIWA * PT/OT, wonder if he may need placement. # thrombocytopenia due to alcoholism # mild alcohol-induced hepatitis, continue to monitor, improved today # asthma, stable # alopecia # fibromyalgia Subjective: Patient has ongoing delirium. Still not ready for discharge and not competent to make decisions. He denies any pain he stills admits to wanting to stop drinking. He says "I have stopped.". Patient discussed in multidisciplinary rounds Objective: Vital Signs Temp Pulse Resp BP Pulse Ox 35.7 C L 93 20 108/79 99 08/13/18 07:50 08/13/18 07:50 08/13/18 07:50 08/13/18 07:50 08/13/18 07:50 Laboratory Results 08/13/18 05:15 08/13/18 05:15 08/12/18 08/13/18 08/14/18 05:59 05:59 05:59 Intake Total 1982 1751 Output Total 700 475 Balance 1283 1277 - Physical Exam Constitutional: unkempt Eyes: PERRL Ears, Nose, Mouth, Throat: other (Ecchymoses right eye with laceration) Cardiovascular: regular rate and rhythym, tachycardia Respiratory: no respiratory distress Gastrointestinal: soft, non-tender abdomen, no palpable masses Genitourinary: no bladder fullness Skin: warm, normal color Neurologic: No AAOx3, No facial droop Psychiatric: encephalopathic ICD10 Worksheet Patient Problems: Problems Problem Status Onset Alcoholism Acute Alcohol withdrawal seizure with delirium Acute
--- NOTE | 2018-08-13 11:40 | ASMTCMCOM ---
CM Note CM Note Notes: 08/13/2018 Case Management Note Discussed pt during rounds this morning. Per RN report pt is incontinent, unable to feed self d/t proprioception difficulties, needing a roll belt for safety and unable to consistently answer questions appropriately. Discussed w/MD. Left for both Ladan and Raul (pt siblings) requesting a call back to case management without including pt name or HIPPA info. No return phone calls. [id number] application completed and faxed to [facility]. Sent confidential email to Zeenat Barksdale at [facility], left Zeenat GRAHAM. Notified [employer] of need for [employer] Medicaid application on Tuesday. Alerted management technician. Faxed referrals to multiple SNF for termite treater care. Case Management d/c poc: to be determined. Case Management to follow. Date Signed: 08/13/2018 11:39 AM Electronically Signed By:Riya Salmeron RN
--- NOTE | 2018-08-13 16:22 | ASMTCMCOM ---
CM Note CM Note Notes: 08/13/2018 Case Management Note Discussed with MD. Initiated proxy process. Phone call with Ben Jiménez Sr [phone] requested phone call from MD before further conversations about proxy process. Provided number to MD. Case management was teleconferenced into three way call with pt father Ben Jiménez Sr [phone], pt sister Ladan Jiménez [phone], and pt brother Raul [phone] to discuss appointment of proxy. Answered questions about proxy process. During conference call, Ben reported questions answered by about prognosis and next steps in the coming days for pt. All three family members on the call in agreement that father Ben Jiménez Sr will be proxy for pt. Informed Ben that tomorrow piano case maker will be needing to discuss next steps for ULTC 100 and [facility] Medicaid application. Provided Ben Shah number to [employer]. Family members are uncertain if pt can live with them at this time given his current condition. Family shared that pt mother from alcohol related complications in her late 40's. Case Management d/c poc: to be determined. Case Management to follow. Date Signed: 08/13/2018 04:21 PM Electronically Signed By:Riya Salmeron RN
[2018-08-14] MEDS: ALBUTEROL 3 ML DEYVIAL IH PRN ×2 (02:13→20:50)
[2018-08-14] MEDS: LORazepam 2 MG/ML INJ IVP PRN (02:14)
[2018-08-14] MEDS: NS 1,000 ML IV SCH (03:15)
[2018-08-14] MEDS: LORazepam 2 MG/ML INJ IVP SCH (06:26)
[2018-08-14] MEDS: chlordiazePOXIDE 25 MG CAP PO SCH (08:46)
[2018-08-14] MEDS: FAMOTIDINE 20 MG TAB PO SCH ×2 (08:48→20:35)
[2018-08-14] MEDS: THIAMINE HCL 100 MG TAB PO SCH (08:48)
[2018-08-14] MEDS: NICOTINE 21 MG/24 HR PATCH TD PRN (08:48)
[2018-08-14] MEDS ORDERED: PROTOCOL POTASSIUM 1 DOSE MISC PRN (10:11)
[2018-08-14] MEDS ORDERED: POTASSIUM CL 10 MEQ TAB PO ONE (10:16)
[2018-08-14] MEDS ORDERED: POTASSIUM CL 20 MEQ TAB PO ONE (10:51)
--- NOTE | 2018-08-14 11:24 | HOSPPROG ---
Hospitalist Progress Note Assessment/Plan: 38-year-old alcoholic who was seen in the emergency department 2 days prior to admission with a mechanical fall. He apparently quit drinking cold turkey after the ER visit and had a witnessed tonic-clonic seizure at home by his grandmother 2 days later. He is admitted with alcohol withdrawal. # alcohol withdrawal, acute complicated by seizure. Currently on the CIWA protocol and doing relatively well although continues with delirium. * Patient does admit he wants to stop drinking * Quite confused and not medically competent to make any decisions at this time * Continue CIWA, was placed on precedex last night, but weaned off this morning. * PT/OT, wonder if he may need placement. # thrombocytopenia due to alcoholism # mild alcohol-induced hepatitis, continue to monitor, improved today # asthma, stable # alopecia # fibromyalgia Talked with father last night. He and Case Management are working on a proxy to help until patient is more appropriate and able to make medical decisions. He is in favor of placement since the patients mother from complications of alcoholism he in the family or quite upset by this incident. Subjective: Pleasant, discussed in multi discipline every rounds. Patient still quite confused. Objective: Vital Signs Temp Pulse Resp BP Pulse Ox 36.3 C 104 H 18 122/90 H 92 08/14/18 11:19 08/14/18 11:19 08/14/18 11:19 08/14/18 11:19 08/14/18 11:19 Laboratory Results 08/13/18 05:15 08/14/18 08:55 08/13/18 08/14/18 08/15/18 05:59 05:59 05:59 Intake Total 1752 4549.7 Output Total 475 1680 Balance 1277 2869.7 - Physical Exam Constitutional: not in pain, chronically ill appearing Eyes: PERRL Ears, Nose, Mouth, Throat: moist mucous membranes Cardiovascular: regular rate and rhythym Respiratory: no respiratory distress, clear to auscultation, bronchial breath sounds (Anteriorly) Gastrointestinal: normoactive bowel sounds Genitourinary: no bladder fullness, No schwab in urethra (Condom cath) Skin: warm Musculoskeletal: abnormal gait, generalized weakness Neurologic: No AAOx3 Psychiatric: encephalopathic ICD10 Worksheet Patient Problems: Problems Problem Status Onset Alcohol withdrawal seizure with delirium Acute Alcoholism Acute
--- NOTE | 2018-08-14 15:55 | ASMTCMCOM ---
CM Note CM Note Notes: CM discussed case with Latoya from [facility]. She is going to call pt's father to discuss LTC Medicaid prince and time that he is able to come to hospital to sign ppwk. CM to follow-up and get ULTC signed when pt's father in hospital. CM to follow. Plan: SNF Date Signed: 08/14/2018 03:53 PM Electronically Signed By:ENDY John
--- NOTE | 2018-08-14 17:46 | PDINTPN ---
Go Cart Mechanic Progress Note Assessment/Plan: ASSESSMENT 38-year-old male with alcohol dependence admitted with mechanical fall, alcohol withdrawal and alcohol withdrawal seizure. PTOT when able # alcohol withdrawal seizure # alcohol withdrawal # Wernicke's encephalopathy # thrombocytopenia # alcoholic hepatitis # elevated transaminases # fibromyalgia # hypokalemia PLAN # discontinue scheduled benzodiazepines given somnolence # placed on CIWA protocol # discontinue Precedex and treat ETOH withdrawal with as needed benzos # Precedex will not treat withdrawal seizures in should be avoided unless other compelling indication # high-dose thiamine for Wernickes # aggressively replete electrolytes # Feeding - advance as tolerated # Analgesia none # Sedation none # Thromboprophylaxis - SQ hep # Head of bed elevated # Ulcer prophylaxis - not indicated # Glucose SSI # Skin no skin breakdown # Delirium - delirium precautions Subjective: Precedex started overnight for possible alcohol withdrawal symptoms and insomnia. Patient denies fevers chills nausea vomiting. Still with unsteady gait. Denies headaches, fevers chills, nausea vomiting, new rashes shortness of breath Objective: Vital Signs Temp Pulse Resp BP Pulse Ox 36.6 C 108 H 16 123/78 H 91 L 08/14/18 15:27 08/14/18 15:27 08/14/18 15:27 08/14/18 15:27 08/14/18 15:27 Laboratory Results 08/13/18 05:15 08/13/18 08/14/18 08/15/18 05:59 05:59 05:59 Intake Total 1752 4549.7 550 Output Total 475 1680 900 Balance 1277 2869.7 -350 Physical Exam - Physical Exam General Appearance: other (Somnolent, response) EENT: PERRL/EOMI, normal ENT inspection Neck: non-tender, No thyromegaly Respiratory: chest non-tender, lungs clear, normal breath sounds Cardiac/Chest: normal peripheral pulses, regular rate, rhythm Abdomen: non-tender, soft, No distended Back: Normal inspection Skin: normal color, warm/dry, other (Alopecia present) Extremities: normal range of motion, non-tender Neuro/Psych: abnormal chest painting and sealing supervisor II-XII, other (Flat affect, somnolent, arousable no gross focal deficits) ICD10 Worksheet Patient Problems: Problems Problem Status Onset Alcohol withdrawal seizure with delirium Acute Alcoholism Acute
[2018-08-14] MEDS ORDERED: NICOTINE 21 MG/24 HR PATCH TD PRN (17:47)
[2018-08-14] MEDS: ENOXAPARIN 40 MG/0.4 ML SYR SC SCH (18:01)
[2018-08-15] MEDS: LORazepam 2 MG/ML INJ IVP PRN (00:13)
[2018-08-15] MEDS ORDERED: POTASSIUM CL 10 MEQ TAB PO ONE (07:27)
[2018-08-15] MEDS: THIAMINE HCL 100 MG TAB PO SCH (08:04)
[2018-08-15] MEDS: FAMOTIDINE 20 MG TAB PO SCH ×2 (08:04→20:12)
[2018-08-15] MEDS: ENOXAPARIN 40 MG/0.4 ML SYR SC SCH (08:04)
--- NOTE | 2018-08-15 09:10 | HOSPPROG ---
Hospitalist Progress Note Assessment/Plan: 38-year-old alcoholic who was seen in the emergency department 2 days prior to admission with a mechanical fall. He apparently quit drinking cold turkey after the ER visit and had a witnessed tonic-clonic seizure at home by his grandmother 2 days later. He is admitted with alcohol withdrawal. alcohol withdrawal, acute complicated by seizure. Currently on the CIWA protocol w improving delirium continue prn ciwa hold precedex and scheduled benzos improving pt/ot toxic metabolic encephalopathy: 2/2 alcohol withdrawal thrombocytopenia due to alcoholism mild alcohol-induced hepatitis, continue to monitor, improved today check inr for completeness asthma, stable alopecia fibromyalgia hyponatremia: follow proph: lmwh Subjective: per nursing, easier night and more alert today. case d/w dr jessica Objective: Vital Signs Temp Pulse Resp BP Pulse Ox 36.4 C 98 20 105/73 88 L 08/15/18 07:22 08/15/18 07:22 08/15/18 07:22 08/15/18 07:22 08/15/18 07:22 Laboratory Results 08/13/18 05:15 08/15/18 05:34 08/14/18 08/15/18 08/16/18 05:59 05:59 05:59 Intake Total 4549.7 1512 Output Total 1680 1800 Balance 2869.7 -288 - Physical Exam Constitutional: no apparent distress, appears nourished Eyes: PERRL, anicteric sclera Ears, Nose, Mouth, Throat: moist mucous membranes, hearing normal Cardiovascular: regular rate and rhythym, no murmur, rub, or gallop Respiratory: no respiratory distress, no rales or rhonchi Gastrointestinal: normoactive bowel sounds, soft, non-tender abdomen Genitourinary: other (condom catheter), No schwab in urethra Skin: warm, normal color Musculoskeletal: full muscle strength, no muscle tenderness Neurologic: other (aletr conversant. appears better than notes have described) Psychiatric: interacting appropriately ICD10 Worksheet Patient Problems: Problems Problem Status Onset Alcohol withdrawal seizure with delirium Acute Alcoholism Acute
[2018-08-15] MEDS ORDERED: POTASSIUM CL 20 MEQ TAB PO ONE (09:29)
[2018-08-15] MEDS: NICOTINE 7 MG/24 HR PATCH TD PRN (10:08)
[2018-08-15 10:11] LABS: INR 0.94 (0.83-1.16); PROTIME(PATIENT) 12.8 SEC (12.0-15.0)
[2018-08-15] MEDS: guaiFENesin 600 MG TAB.ER PO PRN ×2 (11:05→20:12)
--- NOTE | 2018-08-15 12:12 | PDINTPN ---
Inside Solar Sales Consultant Progress Note Assessment/Plan: ASSESSMENT 38-year-old male with alcohol dependence admitted with mechanical fall, alcohol withdrawal and alcohol withdrawal seizure and electrolyte abnormalities clinically improving # alcohol withdrawal seizure # alcohol withdrawal # Wernicke's encephalopathy # thrombocytopenia # alcoholic hepatitis # elevated transaminases # fibromyalgia # hypokalemia PLAN # CIWA protocol # avoid scheduled benzos and precedex # Precedex will not treat withdrawal seizures in should be avoided unless other compelling indication # s/p high-dose thiamine for Wernickes with improvements in mental status # aggressively replete electrolytes # PT/OT # Feeding -regular diet # Analgesia none # Sedation none # Thromboprophylaxis - SQ hep # Head of bed elevated # Ulcer prophylaxis - not indicated # Glucose SSI # Skin no skin breakdown # Delirium - delirium precautions # dispo transfer to floor 08/15/18 12:09 Subjective: Precedex and schedule benzo stopped yesterday. Patient tolerating diet. Significant hypokalemia despite electrolyte repletion. Electrolytes repleted. Patient complaining of generalized mild pain however denies fevers chills nausea vomiting tremors or anxiety Objective: Vital Signs Temp Pulse Resp BP Pulse Ox 36.9 C 111 H 21 H 109/68 96 08/15/18 11:58 08/15/18 11:58 08/15/18 11:58 08/15/18 11:58 08/15/18 11:58 Laboratory Results 08/13/18 05:15 08/15/18 05:34 08/14/18 08/15/18 08/16/18 05:59 05:59 05:59 Intake Total 4549.7 1512 Output Total 1680 1800 Balance 2869.7 -288 PT 12.8 SEC (12.0-15.0) 08/15/18 09:48 INR 0.94 (0.83-1.16) 08/15/18 09:48 Physical Exam - Physical Exam General Appearance: alert, no apparent distress EENT: PERRL/EOMI, normal ENT inspection Neck: non-tender, full range of motion Respiratory: chest non-tender, lungs clear Cardiac/Chest: normal peripheral pulses, regular rate, rhythm Abdomen: normal bowel sounds, No distended, No guarding Back: Normal inspection Skin: normal color, warm/dry, other, No cyanosis Extremities: normal range of motion, non-tender Neuro/Psych: no motor/sensory deficits, alert, oriented x 3, depressed affect ICD10 Worksheet Patient Problems: Problems Problem Status Onset Alcohol withdrawal seizure with delirium Acute Alcoholism Acute
--- NOTE | 2018-08-15 14:01 | ASMTCMCOM ---
CM Note CM Note Notes: Per Virgen, patient's father/proxy signed the exterminator termite Medicaid application, and it was submitted to [facility] today. Zeenat from [facility] came to assess patient, and functionally he qualifies for SNF. The challenge will be to find a facility; over twenty referrals have been sent, and no one has shown interest. Christopher from [facility] was here today; however, he says that he will have to appeal to the regional office given patient's hx of severe alcoholism. Patient is clearing mentally. Case Management will continue to follow. Date Signed: 08/15/2018 02:00 PM Electronically Signed By:Lucy Pacheco RN
[2018-08-15] MEDS: ALBUTEROL 3 ML DEYVIAL IH PRN (20:22)
[2018-08-16] MEDS ORDERED: POTASSIUM CL 10 MEQ TAB PO ONE (08:11)
[2018-08-16] MEDS: guaiFENesin 600 MG TAB.ER PO PRN (08:25)
[2018-08-16] MEDS: THIAMINE HCL 100 MG TAB PO SCH (08:25)
[2018-08-16] MEDS: ENOXAPARIN 40 MG/0.4 ML SYR SC SCH (08:25)
[2018-08-16] MEDS: FAMOTIDINE 20 MG TAB PO SCH ×2 (08:25→20:41)
[2018-08-16] MEDS: NICOTINE 7 MG/24 HR PATCH TD PRN (08:35)
[2018-08-16] MEDS: ACETAMINOPHEN 500 MG TAB PO PRN (09:30)
--- NOTE | 2018-08-16 12:46 | HOSPPROG ---
Hospitalist Progress Note Assessment/Plan: 38-year-old alcoholic who was seen in the emergency department 2 days prior to admission with a mechanical fall. He apparently quit drinking cold turkey after the ER visit and had a witnessed tonic-clonic seizure at home by his grandmother 2 days later. He is admitted with alcohol withdrawal. alcohol withdrawal, acute complicated by seizure. resolved dc ciwa dc benzos toxic metabolic encephalopathy: 2/2 alcohol withdrawal improved but not resolved thrombocytopenia due to alcoholism mild alcohol-induced hepatitis, continue to monitor, improved today inr normal asthma, stable alopecia fibromyalgia hyponatremia: follow proph: lmwh Subjective: alert, conversant Objective: Vital Signs Temp Pulse Resp BP Pulse Ox 37.1 C 116 H 14 104/76 92 08/16/18 10:35 08/16/18 10:35 08/16/18 10:35 08/16/18 10:35 08/16/18 10:35 Laboratory Results 08/13/18 05:15 08/16/18 05:26 08/15/18 08/16/18 08/17/18 05:59 05:59 05:59 Intake Total 1512 900 Output Total 1800 925 Balance -288 -25 PT 12.8 SEC (12.0-15.0) 08/15/18 09:48 INR 0.94 (0.83-1.16) 08/15/18 09:48 - Physical Exam Constitutional: no apparent distress, appears nourished Eyes: PERRL, anicteric sclera Ears, Nose, Mouth, Throat: moist mucous membranes, hearing normal Cardiovascular: regular rate and rhythym, no murmur, rub, or gallop Respiratory: no respiratory distress, no rales or rhonchi Gastrointestinal: normoactive bowel sounds, soft, non-tender abdomen Genitourinary: no bladder fullness, No schwab in urethra Skin: warm Musculoskeletal: No full muscle strength Neurologic: No AAOx3 Psychiatric: interacting appropriately ICD10 Worksheet Patient Problems: Problems Problem Status Onset Alcohol withdrawal seizure with delirium Acute Alcoholism Acute
[2018-08-16] MEDS: ALBUTEROL 3 ML DEYVIAL IH PRN (19:43)
[2018-08-16] MEDS: POTASSIUM CL 20 MEQ TAB PO SCH (20:41)
[2018-08-17] MEDS: THIAMINE HCL 100 MG TAB PO SCH (11:18)
[2018-08-17] MEDS: FAMOTIDINE 20 MG TAB PO SCH ×2 (11:18→19:39)
[2018-08-17] MEDS: POTASSIUM CL 20 MEQ TAB PO SCH (11:18)
[2018-08-17] MEDS: ENOXAPARIN 40 MG/0.4 ML SYR SC SCH (11:19)
[2018-08-17] MEDS: diphenhydrAMINE 25 MG CAP PO PRN ×2 (11:19→22:24)
--- NOTE | 2018-08-17 13:49 | HOSPPROG ---
Hospitalist Progress Note Assessment/Plan: 38-year-old alcoholic who was seen in the emergency department 2 days prior to admission with a mechanical fall. He apparently quit drinking cold turkey after the ER visit and had a witnessed tonic-clonic seizure at home by his grandmother 2 days later. He is admitted with alcohol withdrawal. alcohol withdrawal, acute complicated by seizure. resolved dc ciwa dc benzos toxic metabolic encephalopathy: 2/2 alcohol withdrawal improved but not resolved thrombocytopenia due to alcoholism mild alcohol-induced hepatitis, continue to monitor, improved today inr normal asthma, stable alopecia fibromyalgia hyponatremia: follow dispo: continue daily PT/OT search for snf ongoing proph: lmwh Subjective: per pt/ot, likely needs snf. has been rejected from 30 facilities, 1 or 2 pending Objective: Vital Signs Temp Pulse Resp BP Pulse Ox 36.8 C 91 14 115/74 92 08/17/18 11:44 08/17/18 11:44 08/17/18 11:44 08/17/18 11:44 08/17/18 11:44 Laboratory Results 08/13/18 05:15 08/17/18 04:52 08/16/18 08/17/18 08/18/18 05:59 05:59 05:59 Intake Total 900 400 Output Total 925 520 Balance -25 -120 PT 12.8 SEC (12.0-15.0) 08/15/18 09:48 INR 0.94 (0.83-1.16) 08/15/18 09:48 - Physical Exam Constitutional: no apparent distress, appears nourished Eyes: PERRL, anicteric sclera Ears, Nose, Mouth, Throat: moist mucous membranes, hearing normal Cardiovascular: regular rate and rhythym, no murmur, rub, or gallop Respiratory: no respiratory distress, no rales or rhonchi Gastrointestinal: normoactive bowel sounds, soft, non-tender abdomen Genitourinary: no bladder fullness, No schwab in urethra Skin: warm, normal color Musculoskeletal: no muscle tenderness Neurologic: AAOx3 ICD10 Worksheet Patient Problems: Problems Problem Status Onset Alcohol withdrawal seizure with delirium Acute Alcoholism Acute
--- NOTE | 2018-08-17 13:57 | ASMTCMCOM ---
CM Note CM Note Notes: Left messages for [facility] and [facility] regarding patient and if they can accept. These are the only 2 considering out of several. All other facilities have said no. CM will follow. Date Signed: 08/17/2018 01:56 PM Electronically Signed By:Anu Wilder LCSW
--- NOTE | 2018-08-17 15:13 | ASMTCMCOM ---
[facility] Note CM Note Notes: Christopher with [facility] called and stated he had spoken with the patient 2 days ago and the patient told him he was not interested in rehab and had no plans to go. Christopher removed him from the admission list. Spoke with the patient today and he seems to think he now wants to go. [facility] is our only current option. I let the patient know we only had 1 facility considering out of several. Awaiting [facility] return call. [facility] will follow. Date Signed: 08/17/2018 03:13 PM Electronically Signed By:Anu Wilder LCSW
[2018-08-18] MEDS: FAMOTIDINE 20 MG TAB PO SCH ×2 (09:28→20:11)
[2018-08-18] MEDS: THIAMINE HCL 100 MG TAB PO SCH (09:28)
[2018-08-18] MEDS: ENOXAPARIN 40 MG/0.4 ML SYR SC SCH (09:28)
[2018-08-18] MEDS: POTASSIUM CL 20 MEQ TAB PO SCH (09:29)
--- NOTE | 2018-08-18 12:34 | HOSPPROG ---
Hospitalist Progress Note Assessment/Plan: 38-year-old alcoholic who was seen in the emergency department 2 days prior to admission with a mechanical fall. He apparently quit drinking cold turkey after the ER visit and had a witnessed tonic-clonic seizure at home by his grandmother 2 days later. He is admitted with alcohol withdrawal. alcohol withdrawal, acute complicated by seizure. resolved dc ciwa dc benzos toxic metabolic encephalopathy: 2/2 alcohol withdrawal improved but not resolved thrombocytopenia due to alcoholism mild alcohol-induced hepatitis, inr normal asthma, stable alopecia fibromyalgia hyponatremia: follow dispo: continue daily PT/OT search for snf ongoing, november maris reached end proph: lmwh Subjective: remains weak. no snf options Objective: Vital Signs Temp Pulse Resp BP Pulse Ox 36.7 C 99 15 109/77 87 L 08/18/18 11:40 08/18/18 11:40 08/18/18 11:40 08/18/18 11:40 08/18/18 11:40 Laboratory Results 08/13/18 05:15 08/18/18 04:34 08/17/18 08/18/18 08/19/18 05:59 05:59 05:59 Intake Total 400 1100 Output Total 520 450 Balance -120 650 PT 12.8 SEC (12.0-15.0) 08/15/18 09:48 INR 0.94 (0.83-1.16) 08/15/18 09:48 - Physical Exam Constitutional: no apparent distress, appears nourished Eyes: PERRL, anicteric sclera Ears, Nose, Mouth, Throat: moist mucous membranes, hearing normal Cardiovascular: regular rate and rhythym, no murmur, rub, or gallop Respiratory: no respiratory distress, no rales or rhonchi Gastrointestinal: normoactive bowel sounds, soft, non-tender abdomen Genitourinary: no bladder fullness, No schwab in urethra Skin: warm, normal color Musculoskeletal: No full muscle strength Neurologic: AAOx3 ICD10 Worksheet Patient Problems: Problems Problem Status Onset Alcohol withdrawal seizure with delirium Acute Alcoholism Acute
--- NOTE | 2018-08-18 12:44 | ASMTCMCOM ---
CM Note CM Note Notes: CM met with pt to discuss discharge options. Pt has been denied at numerous SNFs. CM left multiple messages for [facility] and submit updates through [facility] without response. Pt reports that he wants to continue to work with therapy to get stronger and would like to be discharged home with homecare. Pt reports he is able to stay with his dad or his aunt. CM asked pt to speak with his family to ensure he would be able to stay with them. CM provided education about home health care and he said that he would be interested in continuing to work with homecare PT/OT after discharge. CM discussed pts plan to maintain sobriety. He reports his dad and sister are supportive and can help him maintain sobriety. Pt reports he wants to stay clean and accepted educational material about support groups in the area and linkage with providers. Pt reports he is appreciative of the information but did not want CM to schedule a follow-up appt at [facility]. CM scheduled PCP appt at [facility]: 9:05 check in, appt at 9:20 with his PCP, Dr. Saba at [facility] in [place]. Now that pt is decisional, pt wanted to assign his father and sister as MDPOA. Copy in chart. CM submit referral to [facility]. CM needs to provide HC with pt's address/ contact number once he knows. CM to follow. Plan: Home with Home Health Date Signed: 08/18/2018 12:41 PM Electronically Signed By:ENDY John
[2018-08-18] MEDS: AQUAPHOR OINTMENT 3.5 OZ JAR TP SCH (22:03)
[2018-08-18] MEDS: diphenhydrAMINE 25 MG CAP PO PRN (22:03)
[2018-08-19] MEDS: ACETAMINOPHEN 500 MG TAB PO PRN (03:31)
[2018-08-19] MEDS: FAMOTIDINE 20 MG TAB PO SCH (08:15)
[2018-08-19] MEDS: THIAMINE HCL 100 MG TAB PO SCH (08:16)
[2018-08-19] MEDS: ENOXAPARIN 40 MG/0.4 ML SYR SC SCH (08:16)
[2018-08-19] MEDS: POTASSIUM CL 20 MEQ TAB PO SCH (08:16)
[2018-08-19] MEDS: AQUAPHOR OINTMENT 3.5 OZ JAR TP SCH (08:20)
[2018-08-19 08:55] VITALS: BP 107/77
--- NOTE | 2018-08-19 09:06 | PDIAF ---
- Diagnosis Diagnosis: alcohol withdrawal, weakness Code Status: Full Code - Medication Management Discharge Medications: electronically signed and located in the Home Medication List. - Orders Services needed: Home Care, Physical Therapy, Occupational Therapy Home Care Face to Face: I certify that this patient was under my care and that I had the required [id number] encounter meeting the encounter requirements on the discharge day. My findings support the fact that the patient is homebound as defined in Home Care Face to Face Continued: CMS Chapter 7 Medicare Benefits Manual 30.1.1 , The condition of the patient is such that there exists a normal inability to leave home and consequently, leaving home would require a considerable and taxing effort. Additional Instructions: you have an appointment with Dr. Saba at [facility] in [place] this tuesday, 08/23 at 9:05 AM - Follow Up Care Current Providers and Referrals: Patient,NotPresent [Unknown] - As per Instructions
--- NOTE | 2018-08-19 09:06 | HOSPPROG ---
Hospitalist Progress Note Assessment/Plan: 38-year-old alcoholic who was seen in the emergency department 2 days prior to admission with a mechanical fall. He apparently quit drinking cold turkey after the ER visit and had a witnessed tonic-clonic seizure at home by his grandmother 2 days later. He is admitted with alcohol withdrawal. alcohol withdrawal, acute complicated by seizure. resolved dc ciwa dc benzos toxic metabolic encephalopathy: 2/2 alcohol withdrawal improved but not resolved thrombocytopenia due to alcoholism mild alcohol-induced hepatitis, inr normal asthma, stable alopecia fibromyalgia hyponatremia: follow dispo: strength improved, safe for dc home today w home care > 30 minutes on dc Subjective: up and moving Objective: Vital Signs Temp Pulse Resp BP Pulse Ox 37.4 C 120 H 16 107/77 93 08/19/18 08:53 08/19/18 08:53 08/19/18 08:53 08/19/18 08:53 08/19/18 08:53 Laboratory Results 08/13/18 05:15 08/18/18 04:34 08/18/18 08/19/18 08/20/18 05:59 05:59 05:59 Intake Total 1100 500 Output Total 450 Balance 650 500 PT 12.8 SEC (12.0-15.0) 08/15/18 09:48 INR 0.94 (0.83-1.16) 08/15/18 09:48 - Physical Exam Constitutional: no apparent distress, appears nourished Eyes: PERRL, anicteric sclera Ears, Nose, Mouth, Throat: moist mucous membranes, hearing normal Cardiovascular: regular rate and rhythym, no murmur, rub, or gallop Respiratory: no respiratory distress, no rales or rhonchi Gastrointestinal: normoactive bowel sounds, soft, non-tender abdomen Genitourinary: no bladder fullness, No schwab in urethra Skin: warm Musculoskeletal: full muscle strength ICD10 Worksheet Patient Problems: Problems Problem Status Onset Alcohol withdrawal seizure with delirium Acute Alcoholism Acute
--- NOTE | 2018-08-19 13:29 | ASMTLACE ---
MIGUEL Length of stay for Answers: 7-13 days current admission Acuity / Level of Answers: Yes Care: Did the patient have an inpatient admission? Comorbidities - select Answers: Chronic pulmonary disease all that apply Opioid dependence / Chronic pain Other Notes: asthma, fibromyalgia, c hro juliette pain syndrome. alopecia # of Emergency department Answers: 1-2 visits in the last 6 months Social determinants Answers: History of substance abuse (ETOH, street drugs, prescription drugs, etc.) Score: 19 Date Signed: 08/19/2018 01:28 PM Electronically Signed By:Lesley Townsend
--- NOTE | 2018-08-19 13:29 | GDS ---
[f rep st] DISCHARGE SUMMARY DISCHARGE DIAGNOSES: 1. Severe alcohol withdrawal with delirium tremens requiring ICU admission. 2. Generalized weakness. 3. Mild alcoholic hepatitis. Please see admission history and physical by Dr. Betsy Amezcua. The patient presented on the with a seizure. He was in alcohol withdrawal. He had quit drinking a couple days ago following a mechan ical fall. He does have a desire to quit drinking alcohol. He was maintained on benzodiazepines and Precedex with improvement. Once his alcohol withdrawal resolved, the patient was profoundly weak fo r a number of days. He worked well with therapy with a goal of trying to get better. Ultimately, th ere was consideration of SNF, but no SNF was available for him for a number of reasons. He ultimatel y improved to the point where he is safe to discharge home with family, which is done today. No pres criptions are provided. /[id number]/MODL
--- NOTE | 2018-08-19 13:30 | ASMTDCNOTE ---
Case Management Discharge Discharge Order Complete? Answers: Yes Patient to Obtain Answers: via Family Medications Transportation Arranged Answers: Family/Friends Faxed Final Orders Answers: Yes Agency/Facility Transfer Answers: Yes Report Printed & Faxed to Receiving Agency Family Notified Answers: Yes Discharge Comments Notes: Pt will receive [facility] PT/OT. Date Signed: 08/19/2018 01:30 PM Electronically Signed By:Lesley Townsend
--- NOTE | 2018-08-20 14:46 | ASDISCHSUM ---
Discharge Information Plan Status:Home with Home Health Medically Cleared to Leave:08/11/2018 Discharge Date:08/19/2018 11:14 AM D/C Disposition:Home Health Service [facility] D/C Disposition:Home, Routine, Self-Care Projected Discharge Date:08/19/2018 11:00 AM Transportation at D/C:Family Discharge Delay Reason: Follow-Up Date:08/19/2018 11:00 AM Discharge Slot: Final Diagnosis: Placement Information Referral Type:*Chcf/SNF Referral ID:[id number] Provider Name: Address 1: Phone Number: Address 2: Fax Number: City: Selection Factors: State: Referral Type:*Home Health Care Services Referral ID:[id number] Provider [facility] ([facility]) Address 1[address] [facility] [address] [facility] [facility] Address 2: City:[place] Selection Factors: State:[place] Patient Contact Information Contact Name:FAMILIA Relationship:Sister Address:[address] Work Phone: City:[facility] Phone: [facility]/Zip Code:[place] [address] Email: Financial Information Financial Class:Medicaid Primary Plan Desc:[place] Primary Plan Number:[id number] Secondary Plan Desc: Secondary Plan Number: Assessment Information LACE LACE Length of stay for Answers: 7-13 days current admission Acuity / Level of Answers: Yes Care: Did the patient have an inpatient admission? Comorbidities - select Answers: Chronic pulmonary disease all that apply Opioid dependence / Chronic pain Other Notes: asthma, fibromyalgia, c hro juliette pain syndrome. alopecia # of Emergency department Answers: 1-2 visits in the last 6 months Social determinants Answers: History of substance abuse (ETOH, street drugs, prescription drugs, etc.) Score: 19 Date Signed: 08/19/2018 01:28 PM Electronically Signed By:Lesley Townsend [facility] Progress Note CM Note CM Note Notes: Pt presented to the ED via EMS after having a seizure at his grandmother's house ( where he has been living recently). Pt admitted for ETOH withdrawal seizure and further monitoring. Pt was recently seen in the ED on 08/09 for ETOH intoxication and difficulty walking but declined the option to go to detox and instead discharged home with his brother. Pt states he has been drinking more heavily in the past 4 weeks. Pt states he drinks approximately 1/2 pint of whiskey everyday. Pt states he has never been to a detox or other treatment program. Pt states he is followed by [facility] in [place] but can't remember his PCP's name. This CM called [facility] in [place] (backline # [phone] - - please do not give this # to pts, it is for CM use only) and pt is followed by Dr Jose Juan Saba; CM updated pt's PCP in [facility]. The last time pt was seen at [facility] was 06/16/2017. Pt had called in and requested refills of his asthma inhalers on 07/19/18 and had an appt on 07/25/18 but did not show up for the appt. Per [facility], pt was seen at [facility] in the ED on 07/18/18 for ETOH abuse but was discharged home w/his brother. This CM attempted to contact pt's sister, Ladan ([phone]) & pt's brother, Raul ([phone]) but both calls went to anonymous voicemails so voicemails were not left. Pt states he will try to contact them later. Pt does not know his grandmother's phone # my memory. PT/OT ordered. Exact DC needs TBD but anticipate pt to stabilize and DC home Ind w/family to followup with his PCP and other outpatient substance abuse resources. [facility] CM to follow. Date Signed: 08/11/2018 04:18 PM Electronically Signed By:Coleen Burris RN CAGE Questionnaire CAGE Do you feel you ought to Answers: Yes cut down on your drinking or drug use? Do people annoy you by Answers: No criticizing your drinking or drug use? Do you feel guilty about Answers: No your drinking or drug use? Do you drink or use drugs Answers: No first thing in the morning ([facility] [employer] [facility])? Additional Comments reports consuming 1 - 2 beers/day. Date Signed: 08/12/2018 12:16 PM Electronically Signed By:Riya Salmeron RN [facility] Progress Note CM Note CM Note Notes: 08/12/2018 Case Management Note Discussed pt during rounds this morning. Met w/pt to complete CAGE. Pt stated he consumes 1 -2 beers per day. Denies any other alcohol consumption. Pt stated he is uncertain if he wants to stop drinking at this time. Provided Medicaid specific resources including intensive outpatient, group, and one to one counseling. Case Management d/c poc: home independent with follow up as directed. Case Management available if needs change. Date Signed: 08/12/2018 12:19 PM Electronically Signed By:Riya Salmeron RN [facility] Progress Note CM Note CM Note Notes: 08/13/2018 Case Management Note Discussed pt during rounds this morning. Per RN report pt is incontinent, unable to feed self d/t proprioception difficulties, needing a roll belt for safety and unable to consistently answer questions appropriately. Discussed w/MD. Left for both Ladan and Raul (pt siblings) requesting a call back to case management without including pt name or HIPPA info. No return phone calls. [id number] application completed and faxed to [facility]. Sent confidential email to Zeenat Barksdale at [facility], left Zeenat . Notified [employer] of need for Group Home Medicaid application on Tuesday. Alerted change management administrator. Faxed referrals to multiple SNF for penitentiary care. Case Management d/c poc: to be determined. Case Management to follow. Date Signed: 08/13/2018 11:39 AM Electronically Signed By:Riya Salmeron RN [facility] CM Progress Note CM Note CM Note Notes: 08/13/2018 Case Management Note Discussed with MD. Initiated proxy process. Phone call with Ben Tino Shah [phone] requested phone call from MD before further conversations about proxy process. Provided number to . Case management was teleconferenced into three way call with pt father Ben Jiménez Sr [phone], pt sister Ladan Jiménez [phone], and pt brother Raul [phone] to discuss appointment of proxy. Answered questions about proxy process. During conference call, Ben reported questions answered by about prognosis and next steps in the coming days for pt. All three family members on the call in agreement that father Ben Jiménez Sr will be proxy for pt. Informed Ben that tomorrow case resolution specialist will be needing to discuss next steps for ULTC 100 and [employer] Medicaid application. Provided Ben Shah number to [employer]. Family members are uncertain if pt can live with them at this time given his current condition. Family shared that pt mother from alcohol related complications in her late 40's. Case Management d/c poc: to be determined. Case Management to follow. Date Signed: 08/13/2018 04:21 PM Electronically Signed By:Riya Salmeron RN [facility] CM Progress Note CM Note CM Note Notes: CM discussed case with Latoya from [employer]. She is going to call pt's father to discuss LTC Medicaid prince and time that he is able to come to hospital to sign ppwk. CM to follow-up and get ULTC signed when pt's father in hospital. CM to follow. Plan: SNF Date Signed: 08/14/2018 03:53 PM Electronically Signed By:ENDY John [facility] CM Progress Note CM Note CM Note Notes: Per [facility] [employer], patient's father/proxy signed the penitentiary Medicaid application, and it was submitted to [facility] today. Zeenat from [facility] came to assess patient, and functionally he qualifies for SNF. The challenge will be to find a facility; over twenty referrals have been sent, and no one has shown interest. Christopher from [facility] was here today; however, he says that he will have to appeal to the regional office given patient's hx of severe alcoholism. Patient is clearing mentally. Case Management will continue to follow. Date Signed: 08/15/2018 02:00 PM Electronically Signed By:Lucy Pacheco RN [facility] CM Progress Note CM Note CM Note Notes: Left messages for [facility] and [facility] regarding patient and if they can accept. These are the only 2 considering out of several. All other facilities have said no. CM will follow. Date Signed: 08/17/2018 01:56 PM Electronically Signed By:Anu Wilder LCSW [facility] CM Progress Note CM Note CM Note Notes: Christopher with [facility] called and stated he had spoken with the patient 2 days ago and the patient told him he was not interested in rehab and had no plans to go. Christopher removed him from the admission list. Spoke with the patient today and he seems to think he now wants to go. [facility] is our only current option. I let the patient know we only had 1 facility considering out of several. Awaiting [facility]'s return call. CM will follow. Date Signed: 08/17/2018 03:13 PM Electronically Signed By:Anu Wilder LCSW [facility] CM Progress Note CM Note CM Note Notes: CM met with pt to discuss discharge options. Pt has been denied at numerous SNFs. CM left multiple messages for [place] and submit updates through [facility] without response. Pt reports that he wants to continue to work with therapy to get stronger and would like to be discharged home with homecare. Pt reports he is able to stay with his dad or his aunt. CM asked pt to speak with his family to ensure he would be able to stay with them. CM provided education about home health care and he said that he would be interested in continuing to work with homecare PT/OT after discharge. CM discussed pts plan to maintain sobriety. He reports his dad and sister are supportive and can help him maintain sobriety. Pt reports he wants to stay clean and accepted educational material about support groups in the area and linkage with providers. Pt reports he is appreciative of the information but did not want CM to schedule a follow-up appt at [facility]. CM scheduled PCP appt at [facility]: 9:05 check in, appt at 9:20 with his PCP, Dr. Saba at [facility] in [place]. Now that pt is decisional, pt wanted to assign his father and sister as MDPOA. Copy in chart. CM submit referral to [facility]. CM needs to provide [facility] with pt's address/ contact number once he knows. CM to follow. Plan: Home with Home Health Date Signed: 08/18/2018 12:41 PM Electronically Signed By:ENDY John Case Management Discharge Plan Note Case Management Discharge Discharge Order Complete? Answers: Yes Patient to Obtain Answers: via Family Medications Transportation Arranged Answers: Family/Friends Faxed Final Orders Answers: Yes Agency/Facility Transfer Answers: Yes Report Printed & Faxed to Receiving Agency Family Notified Answers: Yes Discharge Comments Notes: Pt will receive [facility] PT/OT. Date Signed: 08/19/2018 01:30 PM Electronically Signed By:Lesley Townsend Intervention Information
== END 2018-08-19 11:14 | disposition home health service (06) | DRG 775 ==
LOC: EDUNIT# → F2N 13:27 → F1N 08-16 10:21
PROVIDERS: ADMIT Family Medicine; ATTEND Family Medicine
DX: F10.231 Alcohol dependence with withdrawal delirium (principal); D69.6 Thrombocytopenia, unspecified; K70.10 Alcoholic hepatitis without ascites; G25.2 Other specified forms of tremor; G40.89 Other seizures; G47.00 Insomnia, unspecified; E86.9 Volume depletion, unspecified; R53.1 Weakness; J45.909 Unspecified asthma, uncomplicated; L65.9 Nonscarring hair loss, unspecified; M79.7 Fibromyalgia; Z72.0 Tobacco use
CPT/HCPCS: 80305; 96374; 97110-GO; 97116-GP; 97162-GP; 97165-GO; 97530-GO; 97535-GO; G0480; J1650; J2060; J3411; J7613